=== PATIENT | female | born 1995 | race Two or more races ===

== ENCOUNTER 2021-04-02 12:40 | Inpatient (IN) | payer SELFPAY ==
[2021-04-02] VITALS (8 sets, daily range): BP systolic 105–131; BP diastolic 53–78; PULSE 78–106; RESP 16–20; TEMP 37.3–38.6; O2SAT 88–97; BMI 37.5; BMI 40.9
--- NOTE | 2021-04-02 13:20 | XR_ITS ---
PROCEDURE: XR CHEST 2V CLINICAL HISTORY: covid pos, cough, blood tinged sputum COMPARISON: No exams were available for comparison FINDINGS: The cardiomediastinal silhouette and pulmonary vascularity are within normal limits. Multifocal bilateral ground-glass opacities consistent with Covid19 pneumonia. No effusions. No evidence of pneumothorax. No acute bony abnormalities. IMPRESSION: Multifocal ground-glass opacities consistent with bilateral Covid19 pneumonia Dictated by: Ned Morgan MD 04/02/2021 14:04 Ned Morgan MD in [facility] 04/02/2021 14:04
[2021-04-02 13:26] LABS: Influenza A, PCR Not Detected (NotDetected); Influenza B, PCR Not Detected (NotDetected)
--- NOTE | 2021-04-02 13:26 | PC.NURSE ---
Notified RAD of CXR
[2021-04-02 13:31] LABS: Basophils # 0.1 K/mm3 (0-0.2); Basophils % 1.1 % (0.1-2.0); Eosinophils % 0.3 % (0.1-12.0); Hematocrit 41.1 % (37.0-47.0); Hemoglobin 14.1 g/dL (12.2-16.2); Lymphocytes # 1.3 K/mm3 (0.7-4.5); Lymphocytes % 25.4 % (10-50); Mean Corpuscular HGB Conc 34.3 g/dL (31.8-35.4); Mean Corpuscular Hemoglobin 29.5 pg (27.0-31.2); Mean Corpuscular Volume 86.1 fl (81-99); Mean Platelet Volume 9.8 fl (7.4-10.4); Monocytes # 0.2 K/mm3 (0.1-1.0); Monocytes % 3.8 % (1.7-9.3); Neutrophils # 3.6 K/mm3 (1.8-7.8); Neutrophils % 69.5 % (37.0-80.0); Platelet Count 134 K/mm3 (142-424); Red Blood Count 4.77 M/mm3 (4.20-5.40); Red Cell Distribution Width 13.2 % (11.5-17.5); White Blood Count 5.2 K/mm3 (4.8-10.8)
--- NOTE | 2021-04-02 13:38 | PC.NURSE ---
Pt to RAD
[2021-04-02 13:40] LABS: Lactic Acid 1.3 mmol/L (0.7-2.1)
[2021-04-02 14:08] LABS: Coronavirus 19, PCR Detected (NotDetected)
[2021-04-02 14:10] LABS: Chloride 101 mmol/L (98-107); Potassium 3.9 mmoL/L (3.5-5.1); Sodium 140 mmol/L (136-145)
[2021-04-02 14:12] LABS: Alanine Aminotransferase 125 U/L (12-78); Aspartate Amino Transferase 106 U/L (14-36); Blood Urea Nitrogen 5 mg/dl (7-17); Creatinine Clearance Estimated 363 mL/min (50-200); Estimated Glomerular Filt Rate 191 ml/min (>60); GFR (African American) 232 ML/MIN (>60)
[2021-04-02 14:13] LABS: Albumin Level 4.2 g/dl (3.5-5.0); Alkaline Phosphatase 64 U/L (38-126); Anion Gap 14.9 mEq/L (5-15); Bilirubin,Total 0.5 mg/dl (0.2-1.3); Calcium 8.8 mg/dl (8.4-10.2); Carbon Dioxide 28 mmol/L (22.0-30.0); Globulin 4.1 g/dL (1.3-3.2); Glucose 182 mg/dl (74-100); Total Protein,Serum 8.3 g/dl (6.3-8.2)
--- NOTE | 2021-04-02 14:38 | CT_ITS ---
PROCEDURE: CT ANGIO CHEST PE PROTOCOL CLINCIAL INDICATION: covid pos, coughing up blood COMPARISON: No exams were available for comparison TECHNIQUE: IV Contrast: 70ML Isovue 370 Axial images obtained with sagittal and coronal reformats. All CT scans at the facility use one or more dose reduction, viz: automated exposure control, ma/kV adjustment per patient size (including targeted exams where dose is matched to indication, i.e. head), or iterative reconstruction technique. FINDINGS: HEART AND MEDIASTINAL STRUCTURES: There is a small thrombus within the descending branch of the left pulmonary artery. The pulmonary arteries are enlarged with a pulmonary artery/aortic ratio of greater than 1. The RV/LV ratio is also greater than 1. There is flattening of the interventricular septum. No significant reflux of contrast into the inferior vena cava. There is some calcification along the posterior wall the inferior vena cava. No evidence of aortic aneurysm. There are mildly enlarged mediastinal lymph nodes. There is mild cardiomegaly. LUNGS AND PLEURAL SPACES: Multifocal ground-glass opacities are present in both upper and lower lobes consistent with Covid19 pneumonia. No effusions. No evidence of pneumothorax. There is a small area of denser consolidation in the right middle lobe. BONY STRUCTURES: No acute bony abnormalities apparent. UPPER ABDOMEN: Hepatosplenomegaly with diffuse fatty liver infiltration. The spleen measures up to 17 cm in AP dimension ADDITIONAL FINDINGS: No other significant abnormalities. IMPRESSION: 1. There is a small pulmonary embolus in the distal aspect of the descending branch of the left pulmonary artery 2. Enlarged main pulmonary artery with a pulmonary artery/aortic ratio greater than 1 suggesting pulmonary arterial hypertension. The RV/LV ratio is also greater than 1 with a flattened interventricular septum suggesting right heart strain. 3. Multifocal ground-glass opacities consistent with Covid19 pneumonia. Mildly enlarged mediastinal lymph nodes are present which may be reactive. 4. Hepatosplenomegaly with fatty liver Dictated by: Ned Morgan MD 04/02/2021 16:34 Ned Morgan MD in [facility] 04/02/2021 16:34
--- NOTE | 2021-04-02 14:44 | PC.NURSE ---
Notified Rad of CTA
[2021-04-02 15:29] LABS: HCG Qualitative, Serum Negative (Negative)
--- NOTE | 2021-04-02 16:15 | [facility].EDSOB ---
ED Disposition Clinical Impression: Acute COVID-19, Acute respiratory failure due to COVID-19, Obesity (BMI 30-39.9) Pulmonary emboli Qualifiers: Pulmonary embolism type: unspecified Chronicity: acute Acute cor pulmonale presence: unspecified Qualified Code(s): I26.99 - Other pulmonary embolism without acute cor pulmonale Disposition: Admitted As Inpatient Condition on Discharge: Good Referrals: Provider,Referral, MD [Primary Care Provider] - - Critical Care Critical Care Time: No Attestation: On 04/02/21, the high probability of a clinically significant, sudden or life threatening deterioration of the following system(s) required my full and direct attention, intervention and personal management. The time I documented below is in addition to time spent performing reported procedures but includes the following listed in this critical care notation. Medical Decision Making - Medical Records Medical records reviewed: Yes: I reviewed the patient's medical records. - Sim Inquiry Pt receiving controlled substance: No Vital Signs: 04/02/21 13:21 04/02/21 16:33 04/02/21 16:58 Temperature 101.5 F H 99.6 F Temperature Source Oral Oral Pulse Rate 83 87 Pulse Rate [Right Radial] 106 H Respiratory Rate 20 16 Blood Pressure 113/64 105/53 L Blood Pressure [Right Arm] 131/69 Blood Pressure Mean 72 Blood Pressure Mean [Right Arm] 89 Blood Pressure Source [Right Arm] Automatic Cuff Blood Pressure Position [Right Arm] Sitting 02 Sat by Pulse Oximetry 88 L 97 92 L Oxygen Delivery Method Room Air Nasal Cannula Oxygen Flow Rate (LPM) 2 04/02/21 17:00 04/02/21 17:30 Temperature Temperature Source Pulse Rate 81 78 Pulse Rate [Right Radial] Respiratory Rate 16 16 Blood Pressure 113/64 109/57 L Blood Pressure [Right Arm] Blood Pressure Mean 81 74 Blood Pressure Mean [Right Arm] Blood Pressure Source [Right Arm] Blood Pressure Position [Right Arm] 02 Sat by Pulse Oximetry 97 96 Oxygen Delivery Method Oxygen Flow Rate (LPM) - Lab Data Lab results reviewed: Yes: I reviewed the patient's lab results. Lab Results 04/02/21 12:55: SARS-CoV-2 (PCR) Detected A, Influenza A Untype (PCR) Not detected, Influenza Type B (PCR) Not detected 04/02/21 13:00: Serum HCG, Qual Negative 04/02/21 13:10: WBC 5.2, RBC 4.77, Hgb 14.1, Hct 41.1, MCV 86.1, MCH 29.5, MCHC 34.3, RDW 13.2, Plt Count 134 L, MPV 9.8, Neut % (Auto) 69.5, Lymph % (Auto) 25.4, [place] % (Auto) 3.8, Eos % (Auto) 0.3, Baso % (Auto) 1.1, Neut # (Auto) 3.6, Lymph # (Auto) 1.3, [place] # (Auto) 0.2, Eos # (Auto) 0.0, Baso # (Auto) 0.1 04/02/21 13:10: Lactate 1.3 04/02/21 13:50: Sodium 140, Potassium 3.9, Chloride 101, Carbon Dioxide 28, Anion Gap 14.9, BUN 5 L, Creatinine 0.40 L, Estimated Creat Clear 363 H, Estimated GFR 191, Est GFR ( Amer) 232, Glucose 182 H, Calcium 8.8, Total Bilirubin 0.5, AST 106 H, ALT 125 H, Alkaline Phosphatase 64, Total Protein 8.3 H, Albumin 4.2, Globulin 4.1 H, Albumin/Globulin Ratio 1.0 L 04/02/21 13:50: Total Creatine Kinase 77, Troponin I < 0.01 Result diagrams: 04/02/21 13:10 04/02/21 13:50 Orders (Tests/Meds): ED MEDICATIONS Generic Name Dose Route Start Last Admin Trade Name Chanceq PRN Reason Stop Dose Admin Sodium Chloride 1,000 mls @ 999 mls/hr 04/02/21 19:00 04/02/21 18:55 Sod Chlor 0.9% 1000ml Bag IV 04/02/21 20:00 999 mls/hr .Q1H1M TANVI Administration Ceftriaxone Sodium 1 gm/ 50 mls @ 100 mls/hr 04/02/21 19:30 04/02/21 19:40 Sodium Chloride IV 04/16/21 19:29 100 mls/hr Q24H TANVI Administration Azithromycin 500 mg/ Sodium 250 mls @ 250 mls/hr 04/02/21 19:30 04/02/21 19:39 Chloride IV 04/16/21 19:29 250 mls/hr Q24H TANVI Administration Rivaroxaban 15 mg 04/03/21 07:30 Rivaroxaban 15mg Tablet PO 05/03/21 07:29 BIDWMEAL TANVI Discontinued Medications Generic Name Dose Route Start Last Admin Trade Name Freq PRN Reason Stop Dose Admin De
--- NOTE | 2021-04-02 16:51 | CA_ITS ---
APPROVED REPORT EXAM: Comprehensive 2D, Doppler, and color-flow Echocardiogram Steel Melter: Carolyne Bernal RT(R) Ht: 5 ft 7 in Wt: 240lbs BSA: 2.19 BP: 131/69 mmHg Indications: COVID coughing up blood, CP, SOA, obesity 2D Dimensions LVOT 1.99 cm (M/F) 1.5-2.5 LVEF (Meza's) 44.30 % F: 54 - 74 LV Volume 112.40 mL F: 46 - 106 LV Volume Index 51.55 mL/m2 F: 29 - 61 LA Volume 48.50 mL LA Volume Index 22.24 mL/m2 (M/F) 16-34 M-Mode Dimensions RVDd 2.93 cm (0.9-2.6) LA Diam 4.27 cm (1.9-4.0) LVDd 4.83 cm (3.5-5.7) Ao Diam 2.74 cm (2.0-3.7) LVDs 3.84 cm (3.5-5.7) IVSd 0.91 cm (0.6-1.1) PWd 0.99 cm (0.6-1.1) EF (Teich) 41.80% FS 20.50% EDV (Teich) 109.10 mL ESV (Teich) 63.50 mL LV Diastology E Decel Time 220.00 (160-240 msec) E/A Ratio 2.3 MED E' 10.20 (< 7 cm/sec) E'/MED E' Ratio 7.87 (>14) LAT E' 15.00 (<10 cm/sec) E/LAT E' Ratio 5.35 (>14) Mitral Valve MV E Max Shakeel. 80.00 (40-130 cm/s) MV A Velocity 35.00 (40-130 cm/s) E/A Ratio 2.33 MV Decel. Time 220.00 (160-240 ms) MV PHT 64.00 ms Left Ventricle Left atrium is normal size, left ventricle is normal size, there is no concentric left ventricular hypertrophy, there is preserved left ventricular systolic function, visually estimated ejection fraction 55% with no regional wall motion abnormality, diastolic parameters are within normal range. Right Ventricle Right atrium and right ventricle are qualitatively normal size and contractility. Aortic Valve Aortic valve is grossly normal, there is no aortic stenosis or aortic insufficiency. Mitral Valve Mitral valve grossly normal, there is trace mitral regurgitation. Tricuspid Valve Tricuspid valve is grossly normal, there is no significant tricuspid regurgitation seen to calculate right ventricular systolic pressure. Tricuspid valve annular systolic excursion is normal Pulmonic Valve Pulmonic valve is poorly visualized. Great Vessels Aortic root is normal size. Inferior vena cava is normal size with normal respiratory collapse. Pericardium No significant pericardial effusion noted. Conclusion 1. Normal left ventricular size, preserved left ventricular systolic function, visually estimated ejection fraction 55% with no regional wall motion abnormality, diastolic parameters are within normal range. 2. Grossly normal right-sided chambers and contractility. 3. Trace mitral regurgitation. 4. Tricuspid valve annulus systolic excursion is normal 5. No significant pericardial effusion noted. 6. Inferior vena cava is normal size with normal inspiratory collapse. Electronically signed by : Eleazar Parra MD 04/02/2021 17:40:24
--- NOTE | 2021-04-02 16:55 | PC.NURSE ---
pyridine operator paging dr. ruff
--- NOTE | 2021-04-02 17:23 | PC.NURSE ---
speaking with Dr Caro
--- NOTE | 2021-04-02 17:28 | PC.NURSE ---
notified lab of new orders on pt
--- NOTE | 2021-04-02 17:48 | ECG_ITS ---
APPROVED REPORT Exam: Resting ECG HR:85 bpm ECG Measurements Heart Rate 85 AXES NV 116 P 36 QRSd 96 QRS 49 QT 398 T 32 QTc 473 Conclusion Normal sinus rhythm Normal ECG Electronically signed by : Santosh Olivera MD 04/03/2021 12:47:32
[2021-04-02 17:52] LABS: Creatine Kinase 77 U/L (30-135)
--- NOTE | 2021-04-02 17:52 | PC.NURSE ---
ekg compleated by dl
[2021-04-02 18:10] LABS: Troponin I < 0.01 ng/ml (0.00-0.034)
--- NOTE | 2021-04-02 18:47 | PC.NURSE ---
paged Dr. Olivera (account resolution analyst for Dr. Salgado).
--- NOTE | 2021-04-02 20:54 | PC.NURSE ---
patient up to floor via stretcher @ 20:49.
--- NOTE | 2021-04-02 21:18 | PC.NURSE ---
patient up to floor via wheelchair.
[2021-04-02 21:22] LABS: Troponin I < 0.01 ng/ml (0.00-0.034)
[2021-04-03] VITALS: BP 110/56; PULSE 84; RESP 18; TEMP 36.8; O2SAT 91
[2021-04-03 03:41] VITALS: BP 125/57; PULSE 78; RESP 18; TEMP 36.8; O2SAT 93
--- NOTE | 2021-04-03 06:22 | PC.NURSE ---
pt is AxOx4, has rested intermittenly t/o shift, no complaints of pain, does have a dry hacking non-productive cough, remains on 2L NC with O2 sats 91-93%
--- NOTE | 2021-04-03 07:00 | XR_ITS ---
PROCEDURE INFORMATION: Exam: XR Chest Exam date and time: 04/03/2021 7:00 AM Age: 25 years old Clinical indication: Shortness of breath and other: Covid; Patient HX: Inpatient covid positive with acute pneumonia; Additional info: SOB TECHNIQUE: Imaging protocol: XR of the chest. Views: 1 view. COMPARISON: CR XR CHEST 2V 04/02/2021 1:32 PM FINDINGS: Lungs: Diffuse bilateral opacities may represent multifocal pneumonia including COVID.. Pleural spaces: Unremarkable. No pleural effusion. No pneumothorax. Heart/Mediastinum: Unremarkable. No cardiomegaly. Bones/joints: Unremarkable. IMPRESSION: Diffuse bilateral opacities may represent multifocal pneumonia including COVID..
[2021-04-03 08:00] VITALS: BP 129/71; PULSE 86; RESP 25; TEMP 37.2; O2SAT 87; O2SAT 90
[2021-04-03 08:27] LABS: Basophils % 0.1 % (0.1-2.0); Eosinophils % 0.1 % (0.1-12.0); Hematocrit 38.8 % (37.0-47.0); Hemoglobin 12.8 g/dL (12.2-16.2); Lymphocytes % 21.4 % (10-50); Mean Corpuscular HGB Conc 33.1 g/dL (31.8-35.4); Mean Corpuscular Hemoglobin 28.4 pg (27.0-31.2); Mean Platelet Volume 9.6 fl (7.4-10.4); Monocytes # 0.1 K/mm3 (0.1-1.0); Monocytes % 2.8 % (1.7-9.3); Neutrophils # 3.4 K/mm3 (1.8-7.8); Neutrophils % 75.7 % (37.0-80.0); Platelet Count 142 K/mm3 (142-424); Red Blood Count 4.52 M/mm3 (4.20-5.40); Red Cell Distribution Width 12.9 % (11.5-17.5); White Blood Count 4.5 K/mm3 (4.8-10.8)
--- NOTE | 2021-04-03 08:39 | [facility].HPDC ---
General - General Admission date:: 04/02/21 Discharge date: 04/03/21 *Admission Date: 04/02/21 *Chief complaint: Shortness of air/hemoptysis *History of present illness: 25-year-old female who was diagnosed with COVID-19 infection approximately 6 days ago, and initially felt okay with just mild viral symptoms but through the day yesterday on 04/02/2021 became progressively more short of air and had some coughing where she coughed up a little bit of blood. This alarmed her and she came to the emergency department. Thorough work-up in the emergency department revealed evidence of COVID-19 pattern viral inflammation on chest x-ray, and CTA of the chest did reveal a small peripheral pulmonary embolism. The radiologist noted some abnormalities on heart structure and wall motion on CT scan and echocardiogram was done which was normal. Cardiology was consulted, felt that this echo was more indicative of her overall hemodynamic status. She did have some oxygen requirement and given her hemoptysis, PE and questionable CT scan reading was admitted overnight for further evaluation and observation. Of note patient has a hormonal control implant. Has never had a history of blood clots otherwise. Has 3 children with uncomplicated deliveries. Is a non-smoker. Has not been vaccinated. [facility] History I have reviewed the patient's past medical history: Yes Medical History: Denies:: Cancer, Diabetes Mellitus Type 1, Diabetes Mellitus Type 2, MRSA *Have you ever received a pneumonia vaccine?: No *Have you received a flu vaccine this season?: Yes Other Surgeries: Yes: Amputation: No Fractures: No - *Social History Smoking Status: Never smoker Alcohol Intake: current Alcohol Intake Frequency:: holidays/special occasions only *Occupational Status:: unemployed *Travel in the last 8 weeks: None Family Hx:: Coronary Artery Disease, Diabetes, Hyperlipidemia, Hypertension Review of Systems - Review of Systems Review of systems:: pertinent systems reviewed and negative unless documented below Patient feels much better this morning, notes her shortness of air has resolved, denies further hemoptysis. - *Neurologic Denies localized weakness, Denies headache(s), Denies seizure-like activity Exam Vital signs and Labs for Last 24 Hours: Temp Pulse Resp BP Pulse Ox 98.2 F 78 18 125/57 L 93 L 04/03/21 03:41 04/03/21 03:41 04/03/21 03:41 04/03/21 03:41 04/03/21 03:41 Laboratory Results - last 24 hr 04/02/21 12:55: SARS-CoV-2 (PCR) Detected A, Influenza A Untype (PCR) Not detected, Influenza Type B (PCR) Not detected 04/02/21 13:00: Serum HCG, Qual Negative 04/02/21 13:10: WBC 5.2, RBC 4.77, Hgb 14.1, Hct 41.1, MCV 86.1, MCH 29.5, MCHC 34.3, RDW 13.2, Plt Count 134 L, MPV 9.8, Neut % (Auto) 69.5, Lymph % (Auto) 25.4, [place] % (Auto) 3.8, Eos % (Auto) 0.3, Baso % (Auto) 1.1, Neut # (Auto) 3.6, Lymph # (Auto) 1.3, [place] # (Auto) 0.2, Eos # (Auto) 0.0, Baso # (Auto) 0.1 04/02/21 13:10: Lactate 1.3 04/02/21 13:50: Sodium 140, Potassium 3.9, Chloride 101, Carbon Dioxide 28, Anion Gap 14.9, BUN 5 L, Creatinine 0.40 L, Estimated Creat Clear 363 H, Estimated GFR 191, Est GFR ( Amer) 232, Glucose 182 H, Calcium 8.8, Total Bilirubin 0.5, AST 106 H, ALT 125 H, Alkaline Phosphatase 64, Total Protein 8.3 H, Albumin 4.2, Globulin 4.1 H, Albumin/Globulin Ratio 1.0 L 04/02/21 13:50: Total Creatine Kinase 77, Troponin I < 0.01 04/02/21 20:53: Troponin I < 0.01 04/03/21 07:37: WBC 4.5 L, RBC 4.52, Hgb 12.8, Hct 38.8, MCV 86.0, MCH 28.4, MCHC 33.1, RDW 12.9, Plt Count 142, MPV 9.6, Neut % (Auto) 75.7, Lymph % (Auto) 21.4, [place] % (Auto) 2.8, Eos % (Auto) 0.1, Baso % (Auto) 0.1, Neut # (Auto) 3.4, Lymph # (Auto) 1.0, [place] # (Auto) 0.1, Eos # (Auto) 0.0, Baso # (Auto) 0.0 I & O for Last 24 hours: Intake & Output 03/31/21 04/01/21 04/02/21 04/03/21 11:59 11:59 11:59 11:59 Weight 261 lb 1.6 oz - Constitutional no acute
--- NOTE | 2021-04-03 09:13 | PC.NURSE ---
PT'S ROOM AIR SATURATION 87%
[2021-04-03 09:27] LABS: Anion Gap 12.2 mEq/L (5-15); Blood Urea Nitrogen 8 mg/dl (7-17); Calcium 8.5 mg/dl (8.4-10.2); Carbon Dioxide 27 mmol/L (22.0-30.0); Chloride 105 mmol/L (98-107); Creatinine Clearance Estimated 264 mL/min (50-200); Estimated Glomerular Filt Rate 267 ml/min (>60); GFR (African American) 323 ML/MIN (>60); Glucose 261 mg/dl (74-100); Magnesium 2.1 mg/dl (1.6-2.3); Potassium 4.2 mmoL/L (3.5-5.1); Sodium 140 mmol/L (136-145)
[2021-04-03 09:44] LABS: Alanine Aminotransferase 102 U/L (12-78); Albumin Level 3.6 g/dl (3.5-5.0); Alkaline Phosphatase 52 U/L (38-126); Aspartate Amino Transferase 109 U/L (14-36); Bilirubin,Direct 0.3 mg/dl (0.0-0.4); Bilirubin,Indirect 0.2 mg/dL (0.0-0.9); Bilirubin,Total 0.5 mg/dl (0.2-1.3); Bilirubin,Unconjugated 0.2 mg/dL (0.0-1.1); Total Protein,Serum 7.1 g/dl (6.3-8.2)
== END 2021-04-03 10:30 | disposition home or self-care (01) | DRG 177 ==
LOC: ER 19:50 → 2ND 21:36
PROVIDERS: Admitting Provider Internal Medicine Adolescent Medicine; Emergency Provider Emergency Medicine; Visit Provider Internal Medicine Adolescent Medicine
DX: U07.1 COVID-19 (principal); I26.99 Other pulmonary embolism without acute cor pulmonale; J96.00 Acute respiratory failure, unspecified whether with hypoxia or hypercapnia; R04.2 Hemoptysis; Z68.41 Body mass index [BMI] 40.0-44.9, adult; E66.9 Obesity, unspecified
CPT/HCPCS: 36415; 71045; 71046; 71275; 80048; 80053; 80076; 82550; 83605; 83735; 84484; 84703; 85025; 87040; 93005; 93306; 96365; 96366; 96372; 96375; 99284; C9803; J0456; Q9967; U0003; U0005